=== PATIENT | female | born 1995 | race Caucasian/White ===

== ENCOUNTER 2024-07-23 21:55 | Emergency (ER) | payer OTHER, SELFPAY ==
[2024-07-23 21:58] VITALS: BP 163/87; PULSE 86; RESP 18; TEMP 36.6; O2SAT 100; BMI 31.0
[2024-07-23 22:19] LABS: Absolute Lymphocyte Count 3.04 X10^3/uL (0.83-4.51); Absolute Neutrophil Count 7.5 X10^3/uL (2.0-7.7); Basophil# 0.06 X10^3/uL; Basophil% 0.5 % (0-1); Eosinophil# 0.31 X10^3/uL; Eosinophils% 2.7 % (0-5); Hematocrit 43.3 % (37-47); Hemoglobin 14.8 g/dL (12.0-15.0); Lymphocyte # 3.04 X10^3/ul (0.83-4.51); Lymphocyte % 26.4 % (19-41); Mean Corp Hgb Conc 34.2 g/dL (32-36); Mean Corpuscular Hgb 30.3 pg (27.0-32.0); Mean Corpuscular Volume 88.5 fL (81-99); Mean Platelet Vol. 9.8 fl (6.2-12.0); Monocyte# 0.61 X10^3/uL; Monocyte% 5.3 % (0-10); NRBC Flagged by Analyzer 0 % (0-5); Neutrophil # 7.48 X10^3/uL (2.7-7.7); Neutrophil % 64.8 % (47-70); Platelet Count 249 K/mm3 (150-450); RBC Distribution Width CV 12.6 % (11.6-14.6); RBC Distribution Width SD 40.8 fl (35.1-43.9); Red Blood Count 4.89 M/mm3 (4.2-5.4); White Blood Count 11.5 K/mm3 (4.4-11.0)
--- NOTE | 2024-07-23 22:22 | RAD_ITS ---
INDICATION: chest pain EXAMINATION/TECHNIQUE: X-RAY - XR Chest 1 View COMPARISON: No relevant prior comparison study available FINDINGS: LINES/DEVICES: None. LUNGS: No consolidation. No pneumothorax. MEDIASTINUM: Unremarkable. CARDIAC SILHOUETTE: Not enlarged. BONES AND SOFT TISSUES: No acute abnormalities. RAD/Chest 1 View (Portable) IMPRESSION: No evidence of active intrathoracic disease. Electronically Signed: Leigh Palm MD at 23:10 EDT ,
[2024-07-23 22:44] VITALS: O2SAT 99
[2024-07-23 22:44] LABS: Anion Gap 4 (5-15); BUN 13 mg/dL (7-18); BUN/Creat Ratio 16.1 RATIO (10-20); Calcium,Total 9.6 mg/dL (8.5-10.1); Chloride 108 mmol/L (98-107); EST Glomerular Filtration Rate 91 mL/min (>60); Est Glom Filt Rate - Afr Amer 110 mL/min (>60); Glucose 99 mg/dL (74-106); Potassium 4.5 mmol/L (3.5-5.1); Sodium Level 140 mmol/L (136-145); Troponin-I HS (w/2H Reflex) < 3 pg/mL (3.0-54.0)
--- NOTE | 2024-07-23 22:59 | EDS_ITS ---
HPI History of Present Illness Chief Complaint: Chest Pain Detail of Chief Complaint: Chest pain Informant: patient Narrative Narrative: Patient presents to the emergency department complaint of intermittent chest pain has been going on for a couple of months. She was seen by her primary care physician and told it was heartburn. She was also seen at [facility] ED and told the same thing. She denies recent travel or surgery. She states that tonight her heart rate spiked over 120. No history of PE or DVT. She also says she developed a little bit of a cough yesterday. She has had no fever or chills or sweats. She denies sick contacts. She describes the chest pain as pressure and tightness at times. She states it is in the right upper chest and, radiates across to the left upper chest. Currently rates her pain a 4 5 out of 10. She has had no nausea or vomiting or significant shortness of breath. PFSH PFSH Allergy/AdvReac Type Severity Reaction Status Date / Time No Known Allergies Allergy Verified 07/23/24 22:01 Social History Smoking Status: Never smoker ROS ROS ED Review of Systems ROS Unobtainable: other Constitutional Constitutional ED: Reports lethargy; Denies chills, fever(s), sweats or weight loss Eyes Eyes: Denies blurry vision, change in vision or diplopia ENT ENT ED: Denies rhinorrhea or sore throat Cardiovascular Cardiovascular: Reports chest pain and racing heartbeat; Denies orthopnea Respiratory/Chest Respiratory/Chest: Denies cough, dyspnea, dyspnea on exertion, orthopnea or sputum Gastrointestinal Gastrointestinal: Denies abdominal pain, diarrhea, nausea or vomiting Genitourinary Genitourinary ED: Denies dysuria, hematuria or urinary frequency Musculoskeletal Musculoskeletal: Denies arthralgias, back pain, myalgias or neck pain Integumentary Denies abscess, Abrasions or rash Neurologic Neurologic: Denies headache(s) or weakness Psychiatric Psychiatric: Denies anxiety, depression or suicidal thoughts Endocrine Endocrinology: Denies polydipsia, polyphagia or polyuria Hematologic/Lymphatic Hematologic/Lymphatic: Denies easy bleeding, easy bruising or lymphadenopathy Allergic/Immunologic Allergic/Immunologic ED: Denies mouth swelling, tongue swelling or urticaria EXAM Physical Exam Const Vital Signs: 07/23/24 21:58 07/23/24 22:44 07/23/24 23:15 Temperature 97.9 F Temperature Source Oral Pulse Rate 86 80 Respiratory Rate 18 18 Blood Pressure 163/87 H Blood Pressure Mean 112 Pulse Ox 100 99 98 Oxygen Delivery Method Room Air Room Air Room Air 07/24/24 00:00 Temperature Temperature Source Pulse Rate 78 Respiratory Rate 18 Blood Pressure Blood Pressure Mean Pulse Ox 100 Oxygen Delivery Method Room Air Positive well nourished and well developed General Appearance ED: well developed and NAD HEENT Reports TM's clear and moist mucous membranes normocephalic and atraumatic; Negative for trauma or tenderness Tympanic Membrane ED: Yes TM's clear Eyes PERRL and EOMs intact bilaterally General Eye ED: Negative for pale conjunctiva or scleral icterus Neck no lymphadenopathy, supple and no JVD General: Negative for tenderness Chest Wall inspection of chest normal and palpation of chest normal Chest: Negative for tenderness Resp normal respiratory effort and clear to auscultation bilaterally Effort and Inspection: Negative for respiratory distress or pain with movement Auscultation: Negative for rhonchi, wheezes or diminished lung sounds Cardio regular rate, regular rhythm, S1 normal heart sound, S2 normal heart sound and no murmurs Peripheral Pulses: pulses 2+ throughout GI normal to inspection, nondistended, normoactive bowel sounds, soft to palpation, non-tender, non-distended and no masses Back/Spine no CVA tenderness and no thoracic nor lumbar tenderness Extremity normal to inspection General Extremety ED: Negative for edema General Extremity: Negative for edema Neuro oriented x3, CN's II-XII intact bilaterally, no sensory deficits noted and gait normal Sensorium / Orientation: awake, alert, oriented to person, oriented to place and oriented to time Motor Exam: strength 5/5 throughout and strength abnormal Psych mental status grossly normal Skin no rashes or lesions noted and no wounds MDM MDM MDM Narrative Medical decision making narrative: Patient presents with intermittent chest pain for at least several months. She has history of anxiety but not diagnosed. Does not take any medication for anxiety. She is been seen by her primary care physician for this chest discomfort as well as another emergency department and she was told it was heartburn. She denies any heartburn symptoms however. She denies recent travel or surgery. In the differential would be stress or anxiety or esophageal spasm or less likely acute coronary syndrome or PE. IV line established. EKG obtained arrival shows sinus rhythm with rate 75 bpm with no acute ST segment changes. No evidence of pericarditis. CBC with differential show count 11.5 with hemoglobin 14.8 and platelet count of 249. D-dimer normal at 0.29. Troponin was normal at less than 3. Chest x-ray unremarkable. COVID flu and RSV testing was negative. This point etiology of her chest pain unclear. Recommended she follow-up with her primary care physician and I can also refer her to cardiology for follow-up if her pain persists as she did describe some tachycardia at 120 this afternoon which clinically suspect was likely sinus tach. Lab Data Attestation: I reviewed the patient's lab results. Labs: Laboratory Results - last 24 hr 07/23/24 07/23/24 22:12 23:14 WBC 11.5 H RBC 4.89 Hgb 14.8 Hct 43.3 MCV 88.5 MCH 30.3 MCHC 34.2 RDW Std Deviation 40.8 RDW Coeff of Miguel Angel 12.6 Plt Count 249 MPV 9.8 Immature Gran % (Auto) 0.300 Neut % (Auto) 64.8 Lymph % (Auto) 26.4 [place] % (Auto) 5.3 Eos % (Auto) 2.7 Baso % (Auto) 0.5 Absolute Neuts (auto) 7.5 Absolute Lymphs (auto) 3.04 Nucleated RBC % 0 D-Dimer Quant (PE/DVT) 0.29 Sodium 140 Potassium 4.5 Chloride 108 H Carbon Dioxide 28.0 Anion Gap 4 L BUN 13 Creatinine 0.80 Estim Creat Clear Calc 129.80 Est GFR (MDRD) Af Amer 110 Est GFR (MDRD) Non-Af 91 BUN/Creatinine Ratio 16.1 Glucose 99 Calcium 9.6 Troponin I High Sens < 3 L Radiography Diagnostic Testing: Clinical Impression(s) from Imaging Studies Chest X-Ray 07/23/24 22:22 IMPRESSION: No evidence of active intrathoracic disease. Electronically Signed: Leigh Palm MD at 23:10 EDT , 1 view chest x-ray obtained interpreted by myself as no evidence of infiltrate or pneumothorax or acute disease process. Radiology in agreement. EKG Initial EKG: Attestation: I personally reviewed and interpreted this EKG as follows: Comments: Sinus rhythm with rate of 75 bpm with no acute ST segment changes Discharge Plan Triage Chief Complaint: Chest Pain ED Provider: Lupe Carlson Dx/Rx/DC Orders Clinical Impression: Chest pain Instructions: ED Chest Pain, Uncertain Cause Primary Care Provider: Alex Ochoa Referrals: Phi Gonzalez MD [Med Staff - Active Staff] - 5-7 Days [facility] Doctor,Out of [Non-Staff] - Print Language: Georgian Disposition Disposition: Home, Self Care
[2024-07-23 23:15] VITALS: PULSE 80; RESP 18; O2SAT 98
[2024-07-23 23:45] LABS: D-Dimer Quantitative (DVT/PE) 0.29 FEU/ug/m (0.27-0.49)
[2024-07-24] VITALS: PULSE 78; RESP 18; O2SAT 100
[2024-07-24 00:15] LABS: Reflex Troponin-HS? (from REC) Y
[2024-07-24 01:09] VITALS: BP 124/71; PULSE 70; RESP 16; TEMP 36.7; O2SAT 97
== END 2024-07-24 01:12 | disposition home or self-care (01) ==
PROVIDERS: Emergency Provider Emergency Medicine; PCP Physician Assistant; Visit Provider Emergency Medicine
DX: R07.9 Chest pain, unspecified (principal)
CPT/HCPCS: 71045; 80048; 84484; 85025; 85379; 87631; 93005; 99284; A4216

== ENCOUNTER → 2024-09-13 | Outpatient (CLI) | payer OTHER, SELFPAY ==
--- NOTE | 2024-09-13 13:11 | ECHOD_ITS ---
Reason For Study: Chest Pain Procedure This was a 2D Doppler, Color Flow transthoracic echocardiogram. Exam performed in department. Left Ventricle Normal LV size. Left ventricular systolic function is normal. The left ventricular ejection fraction is 65 %. No regional wall motion abnormalities noted. Right Ventricle Normal RV size. Normal systolic function. Atria Normal left atrium. Normal right atrium. Hypermobile atrial septum. Patent foramen ovale. Mitral Valve Normal mitral valve. Tricuspid Valve Normal tricuspid valve. Aortic Valve Trisinus/trileaflet aortic valve. Pulmonic Valve Normal pulmonic valve. Great Vessels Normal aortic root. The pulmonary artery is normal size. Inferior vena cava collapse with respiration. Pericardium/Pleural No pericardial effusion. Medication Saline bubble study deferred due to possible chance of . MMode/2D Measurements & Calculations LVIDd: 4.2 cm IVSd: 1.1 cm Ao root diam: 2.7 cm LVIDs: 2.8 cm LVPWd: 0.93 cm RVDd: 3.6 cm FS: 34.0 % LAV(MOD-bp): 32.4 ml LVAd ap4: 28.2 cm2 SV(MOD-sp4): 51.9 ml LAV(MOD-bp) Indexed: 15.3 ml/m2 LVLd ap4: 8.4 cm SI(MOD-sp4): 24.5 ml/m2 LAV(MOD-sp2): 32.2 ml EDV(MOD-sp4): 78.9 ml LAV(MOD-sp4): 28.2 ml EDV(sp4-el): 80.9 ml LVAs ap4: 14.7 cm2 LVLs ap4: 6.8 cm ESV(MOD-sp4): 27.0 ml ESV(sp4-el): 26.8 ml EF(MOD-sp4): 65.8 % EF(sp4-el): 66.8 % SV(sp4-el): 54.1 ml LA A4 area: 12.8 cm2 LA dimension(2D): 3.2 cm RA A4 area: 11.9 cm2 TAPSE: 2.0 cm Time Measurements MV dec time: 0.22 sec Doppler Measurements & Calculations MV E max rommel: 61.4 cm/sec Lat Peak E' Rommel: 13.9 cm/sec Med Peak E' Rommel: 10.9 cm/sec MV A max rommel: 80.7 cm/sec E/E' lat: 4.4 E/E' med: 5.6 MV E/A: 0.76 MV V2 max: 87.6 cm/sec MV dec slope: 296.3 cm/sec2 Ao V2 max: 139.9 cm/sec MV max P.1 mmHg Ao max P.8 mmHg MV V2 mean: 55.5 cm/sec Ao V2 mean: 93.7 cm/sec MV mean P.5 mmHg Ao mean P.1 mmHg MV V2 VTI: 18.2 cm Ao V2 VTI: 24.7 cm AV (velocity ratio): 0.88 LV V1 max: 115.5 cm/sec PA V2 max: 104.3 cm/sec LV V1 max P.3 mmHg LV V1 mean P.2 mmHg LV V1 mean: 83.9 cm/sec LV V1 VTI: 21.7 cm ECHO/Echo Complete Interpretation Summary Normal LV size. Left ventricular systolic function is normal. The left ventricular ejection fraction is 65 %. Hypermobile atrial septum. Patent foramen ovale. Ordering Physician: Phi Gonzalez Referring Physician: Phi Gonzalez Performed By: Christopher Escalera RCS
--- NOTE | 2024-09-13 16:25 | STRESSREP ---
Stress Test Report Exercise stress test. 29-year-old lady with a history of chest pain Stress protocol: Resting EKG demonstrates normal sinus rhythm with a rate of 90 bpm resting blood pressure is 116/74 mmHg. The patient exercised according to the regular Chucky protocol for a total duration of 10 minutes attaining a maximum heart rate of 184 bpm which was 95 beats of maximum predicted heart rate; the maximum workload was 13.4 metabolic equivalents. At rest there were no ST or T wave changes noted to suggest ischemia and at peak exercise upsloping ST changes only were noted which did not meet the criteria for ischemia. No clinical angina was noted the test was terminated due to the target heart rate being achieved/fatigue. The peak blood pressure was 148/58 mmHg. Rate-pressure product was 22,200. Conclusion: Stress test with no EKG criteria for ischemia at a high workload
== END | disposition home or self-care (01) ==
LOC: CVS 13:08
PROVIDERS: Referring Provider Internal Medicine Cardiovascular Disease; Visit Provider Internal Medicine Cardiovascular Disease
DX: R07.9 Chest pain, unspecified (principal)
CPT/HCPCS: 93017; 93306